=== PATIENT | male | born 1960 | race Caucasian/White ===

== ENCOUNTER 2016-06-23 11:44 | Observation (INO) | payer BC ==
[~2016-06-23] VITALS: Ht 182.9 cm; Wt 102.0 kg
--- NOTE | 2016-06-23 12:31 | EMERGENCY ROOM VISIT NOTE ---
History First contact with patient: 12:07 Chief Complaint: STROKE SYMPTOMS Stated Complaint: LACK OF MEMORY EARLIER THIS MORNING/FORGETFUL Nursing Triage Summary: confusion started this AM, not able to follow his thoughts or tasks as usual; states "about 80%-90% back to normal now". History of Present Illness The patient is a 55 year old male who presents to the Emergency Room via private vehicle with complaints of "lack of memory early this morning/forgetful ". 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 He states that it was almost as if his short-term memory had gone. There were no speech changes or weaknesses. There were no vision changes at the time. He felt that since then short-term memory has gotten better but he still has difficulty recalling that time. He states he's never had this before. He notes that he also just developed some vision changes that when he looks at the paper he cannot see the end of the pen when he is writing and has similar vision changes for 16 years and was evaluated by an b2b appointment setter who believes he might the ocular migraines. He denies any history of heart troubles , history of stroke, chest pain, shortness of breath, weakness. He feels that his symptoms are 80-90% better now. His who accompanies him states he is not experiencing any deficits that she is aware of at this time. Review of Systems A complete 10-point Review of Systems was discussed with the patient, with pertinent positives and negatives listed in the History of Present Illness. All remaining Review of Systems questions can be considered negative unless otherwise specified. Past Medical/Surgical History Medical Problems: (1) TIA (transient ischemic attack) Social History Smoking Status: Never Smoker Current/Historical Medications Scheduled Aspirin (Aspirin EC Low Dose), 81 MG PO QAM Biotin (Biotin), 1,000 MCG PO DAILY Multivitamin (Multivitamin), 1 TAB PO DAILY Scheduled PRN Triamcinolone Acet (Aristocort 0.1%), 1 APPLN TOP BID PRN for Itching Allergies Coded Allergies: No Known Allergies (Unverified , 06/23/16) Physical Exam Vital Signs Date Time Temp Pulse Resp B/P Pulse Ox O2 Delivery O2 Flow Rate FiO2 06/23/16 15:04 63 21 99 06/23/16 14:59 59 20 142/92 99 2/2/17 14:54 62 17 100 06/23/16 14:49 63 20 100 06/23/16 14:44 63 26 100 06/23/16 14:39 63 19 100 06/23/16 14:34 66 16 100 /07/08 14:29 65 19 99 06/23/16 14:24 65 19 99 06/23/16 14:19 62 21 100 06/23/16 14:14 63 16 99 06/23/16 14:09 60 21 100 06/23/16 13:58 119/80 06/23/16 13:54 64 19 99 06/23/16 13:49 66 20 99 06/23/16 13:44 64 16 99 06/23/16 13:39 66 18 97 06/23/16 13:34 58 17 99 06/23/16 13:29 58 16 99 06/23/16 13:24 62 17 99 06/23/16 13:19 63 16 99 06/23/16 13:14 63 13 100 06/23/16 13:09 62 16 99 06/23/16 13:04 61 17 99 06/23/16 12:59 61 19 98 06/23/16 12:58 123/77 06/23/16 12:54 62 18 98 06/23/16 12:50 63 21 123/77 06/23/16 12:49 61 17 100 06/23/16 12:46 125/83 06/23/16 12:34 59 16 97 06/23/16 12:29 63 19 99 06/23/16 12:24 61 22 99 06/23/16 12:19 66 17 99 06/23/16 12:14 63 18 99 06/23/16 12:09 60 17 99 06/23/16 12:04 63 06/23/16 12:04 58 14 99 06/23/16 12:01 116/71 06/23/16 11:45 36.6 66 20 132/85 100 Room Air Physical Exam VITAL SIGNS - Vital signs and nursing notes were reviewed. Afebrile, normotensive, non-tachycardic and saturating well on room air 100%. GENERAL -55-year-old male appearing his stated age who is in no acute distress. Communicates well with provider and answers questions appropriately. SKIN - Without rashes. HEAD - NC/AT. No facial deficits or unilateral drooping. EYES - PERRL with EOMI bilaterally. Sclera anicteric. Palpebral conjunctiva pink and moist with no injection noted. Optic fundi appear to be normal. EARS - No deformities of external structures noted on gross examination bilaterally. No hemotympanum . External auditory canals without discharge or otorrhea. Tympanic membranes pearly harrison without retraction or bulging. No fluid or purulent material visualized behind the TM. Handle of malleus, umbo, cone of light, pars tensa/flaccid all easily visualized. NOSE - Midline and without cyanosis. No epistaxis or purulent drainage noted. MOUTH/OROPHARYNX - Without perioral cyanosis. Buccal mucosa pink and moist and without leukoplakia. Tongue midline with equal elevation of palate bilaterally. No tonsillar hypertrophy, erythema, or exudates noted. Good no dentition noted. NECK - Neck with FROM. Supple to palpation. No lymphadenopathy noted. No nuchal rigidity. LUNGS - Chest wall symmetric without accessory muscle use, intercostals retractions, or central cyanosis. Normal vesicular breath sounds CTA B/L. No wheezes, rales, or rhonchi appreciated. CARDIAC - RRR with S1/S2. No murmur, rubs, or gallops appreciated. EXTREMITIES - No clubbing or peripheral cyanosis. No pretibial edema present. + 5/5 strength noted in UE/LE bilaterally. No neurologic deficits. NEUROLOGIC - Cranial nerves II through XII grossly intact. Sensory intact to light touch throughout. PSYCH - A&Ox3 and cooperates fully with examiner. Pt is very pleasant and interacts well with examiner. Medical Decision & Procedures ER Provider Diagnostic Interpretation: HEAD CT NONCONTRAST CT DOSE: 614.27 mGy.cm HISTORY: Mental status change Stroke TECHNIQUE: Multiaxial CT images of the head were performed without the use of intravenous contrast. Comparison: None. Findings: The paranasal sinuses and mastoid air cells are clear. The calvarium and skull base are intact. The ventricles and sulci are within normal limits. There is no mass, hematoma, midline shift, or acute infarct. Impression: No acute intracranial abnormality. Electronically signed by: Ravinder Awad M.D. 06/23/2016 12:55 PM Dictated Date/Time: 06/23/2016 12:54 PM Laboratory Results Test 06/23/16 12:30 06/23/16 13:15 06/23/16 14:07 Estimated Average Glucose 105 mg/dl Hemoglobin A1c 5.3 % (4.5-5.6) Total Creatine Kinase 81 U/L (39-308) Creatine Kinase MB 1.5 ng/ml (0.5-3.6) Creatine Kinase MB Ratio 1.9 (0-3.0) Troponin I < 0.015 ng/ml (0-0.045) Prothrombin Time 10.9 SECONDS (9.0-12.0) Prothromb Time International Ratio 1.0 (0.9-1.1) Activated Partial Thromboplast Time 24.5 SECONDS (21.0-31.0) Partial Thromboplastin Ratio 0.9 Urine Opiates Screen NEG (NEG) Urine Methadone, Qualitative NEG (NEG) Urine Barbiturates NEG (NEG) Urine Phencyclidine (PCP) Level NEG (NEG) Ur Amphetamine/Methamphetamine NEG (NEG) MDMA (Ecstasy) Screen NEG (NEG) Urine Benzodiazepines Screen NEG (NEG) Urine Cocaine Metabolite NEG (NEG) Urine Marijuana (THC) NEG (NEG) Medications Administered Medications (Trade) Dose Ordered Sig/Velma Route Start Time Stop Time Status Last Admin Dose Admin Sodium Chloride (Nss 1000ml) 1,000 ml @ 50 mls/hr Q20H IV 06/23/16 12:18 06/24/16 17:18 DC 06/24/16 10:05 50 MLS/HR Medical Decision Patient was seen and evaluated as above. After obtaining a thorough history and physical examination IV access was obtained and the above workup was performed. CBC reveals no leukocytosis or anemia. Coagulation studies were normal. CMP reveals no abnormality. Troponin is negative. Patient's EKG reveals sinus bradycardia rate of 5 bpm. There is no ectopy or ischemic change noted on the EKG without previous for comparison. CT of head was negative. Patient clinical experience well. No deficits noted. Case was discussed with my attending. It was decided that due to the patient's presentation of symptoms that the patient would benefit from inpatient management and further investigation into his symptomatology. Case was discussed with the admitting team at 1:57 PM. Please refer to further documentation regarding the patient's stay. In the evaluation treatment this patient the following differential diagnoses were entertained: TIA, CVA, hypoglycemic event, among others. Impression Primary Impression: Memory deficit Departure Information Dispostion Admitted as an inpatient Condition FAIR Prescriptions Aspirin (Aspirin EC Low Dose) 81 Mg Ectab 81 MG PO QAM for 30 Days Prov: Kristina Cade .SHAVONNE 06/24/16 Referrals Maritza Hernández D.O. (PCP) Patient Instructions [facility]
[2016-06-23] MEDS: SODIUM CHLORIDE 0.9% 1000ML 1,000 ML IV SCH (12:44)
[2016-06-23 12:50] LABS: BASO % 0.6 %; BASO ABS # 0.03 K/uL (0-0.2); COMPLETE YES; EOS % 2.4 %; HEMATOCRIT 44.9 % (42-52); IG% 0.2 %; LYMPH % 29.1 %; LYMPH ABS # 1.46 K/uL (1.2-3.4); MEAN CELL VOLUME 88.6 fL (80-100); MEAN CORPUSCULAR HEMOGLOBIN 29.6 pg (25-34); MEAN CORPUSCULAR HGB CONC 33.4 g/dl (32-36); MONO % 6.6 %; NEUT % 61.1 %; PLATELET COUNT 195 K/uL (130-400); RED BLOOD COUNT 5.07 M/uL (4.7-6.1); WHITE BLOOD COUNT 5.01 K/uL (4.8-10.8)
--- NOTE | 2016-06-23 13:01 | DIAGNOSTIC IMAGING REPORT ---
HEAD CT NONCONTRAST CT DOSE: 614.27 mGy.cm HISTORY: Mental status change Stroke TECHNIQUE: Multiaxial CT images of the head were performed without the use of intravenous contrast. Comparison: None. Findings: The paranasal sinuses and mastoid air cells are clear. The calvarium and skull base are intact. The ventricles and sulci are within normal limits. There is no mass, hematoma, midline shift, or acute infarct. Impression: No acute intracranial abnormality. Electronically signed by: Ravinder Awad M.D. 06/23/2016 12:55 PM Dictated Date/Time: 06/23/2016 12:54 PM
[2016-06-23 13:08] LABS: BLOOD UREA NITROGEN 16 mg/dl (7-18); BUN/CREATININE RATIO 11.5 (10-20); CARBON DIOXIDE 27 mmol/L (21-32); CHLORIDE 107 mmol/L (98-107); GLUCOSE 93 mg/dl (70-99); POTASSIUM 4.2 mmol/L (3.5-5.1); SODIUM 141 mmol/L (136-145)
[2016-06-23 13:12] LABS: CKMB/CK RATIO 1.9 (0-3.0)
[2016-06-23 13:44] LABS: PARTIAL THROMBOPLASTIN RATIO 0.9; PROTHROMBIN TIME (PATIENT) 10.9 SECONDS (9.0-12.0)
[2016-06-23 14:50] LABS: BENZODIAZEPINE, URINE NEG (NEG); COCAINE,URINE NEG (NEG); PHENCYCLIDINE, URINE NEG (NEG)
[2016-06-23] MEDS ORDERED: PHARMACIST DISCHARGE MED REC CONSULT PRN (15:15)
[2016-06-23] MEDS ORDERED: IV FLUIDS COMPLETED PRN (15:15)
[2016-06-23] MEDS ORDERED: ONDANSETRON INJ 2 MG/ML 2 ML VIAL IV PRN (15:15)
[2016-06-23] MEDS ORDERED: ACETAMINOPHEN 325 MG TAB PO PRN (15:15)
[2016-06-23] MEDS ORDERED: ASPIRIN 325 MG ECTAB PO STA (15:47)
--- NOTE | 2016-06-23 16:58 | Neurology Consultation ---
Neurology Consultation Date of Consultation: Jun 23, 2016. Attending Physician: Primary Care Physician: Maritza Hernández D.O. Reason for Consultation: loss of memory r/o TIA/CVA History of Present Illness Tulio is a 55 year old male who presents to the ED with memory issues. 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 He was also having trouble remember parts of the presentation. He denies any other symptoms and was not having trouble speaking or doing his usual ADLs. He has a history of ocular migraines which he states he had one in the ED after arrival they happen about 2-3 times per week random times. His brought him and she saw not evidence of any issues. denies CP, SOB, palpations, dizziness, headache, one sided weakness, numbness tingling, falls, head injury, illness, chiropractor manipulation, new medications. He does not smoke or drink excessive EtOH use, caffeine or other drugs. Social History Smoking Status: Never smoker Smokeless Tobacco Use: No Alcohol Use: occasionally Drug Use: none Marital Status: Housing Status: lives with family Occupation Status: employed Allergies Coded Allergies: No Known Allergies (Unverified , 06/23/16) Current Inpatient Medications Current Inpatient Medications Medications (Trade) Dose Ordered Sig/Velma Route Start Time Stop Time Status Last Admin Dose Admin Sodium Chloride (Nss 1000ml) 1,000 ml @ 50 mls/hr Q20H IV 06/23/16 12:18 07/23/16 12:17 06/23/16 12:44 50 MLS/HR Acetaminophen (Tylenol Tab) 650 mg Q4H PRN PO 06/23/16 15:15 07/23/16 15:14 Ondansetron HCl (Zofran Inj) 4 mg Q6H PRN IV 06/23/16 15:15 07/23/16 15:14 Aspirin (Ecotrin Tab) 81 mg QAM PO 06/24/16 09:00 07/24/16 08:59 Miscellaneous Information (Pharmacist Discharge Med Rec Consult) 1 ea UD PRN N/A 06/23/16 15:15 07/23/16 15:14 Miscellaneous (Iv Fluids Completed) 1 ea PRN PRN N/A 06/23/16 15:15 06/23/17 15:14 Physical Exam Vital Signs (Past 24 Hrs): Date Time Temp Pulse Resp B/P Pulse Ox O2 Delivery O2 Flow Rate FiO2 06/23/16 15:44 67 14 100 06/23/16 15:39 67 13 100 /07/08 15:34 57 18 98 2/2/ 15:29 60 18 98 2/2/ 15:24 60 18 99 /07/08 15:19 66 13 98 /2/ 15:14 60 19 98 06/23/16 15:09 59 19 99 /2/ 15:04 63 21 99 /2/ 14:59 59 20 142/92 99 /2/ 14:54 62 17 100 06/23/16 14:49 63 20 100 06/23/16 14:44 63 26 100 06/23/16 14:39 63 19 100 06/23/16 14:34 66 16 100 // 14:29 65 19 99 06/23/16 14:24 65 19 99 06/23/ 14:19 62 21 100 06/23/16 14:14 63 16 99 06/23/ 14:09 60 21 100 2/2/ 13:58 119/80 /07/08 13:54 64 19 99 // 13:49 66 20 99 06/23/ 13:44 64 16 99 // 13:39 66 18 97 /07/08 13:34 58 17 99 /2/ 13:29 58 16 99 // 13:24 62 17 99 /2/ 13:19 63 16 99 // 13:14 63 13 100 /2/ 13:09 62 16 99 /2/ 13:04 61 17 99 2/2/17 12:59 61 19 98 2/2/17 12:58 123/77 /2/17 12:54 62 18 98 /2/17 12:50 63 21 123/77 /2/17 12:49 61 17 100 2/2/17 12:46 125/83 /2/17 12:34 59 16 97 2/2/17 12:29 63 19 99 /2/17 12:24 61 22 99 /2/17 12:19 66 17 99 2/2/17 12:14 63 18 99 06/23/16 12:09 60 17 99 06/23/16 12:04 63 06/23/16 12:04 58 14 99 06/23/16 12:01 116/71 06/23/16 11:45 36.6 66 20 132/85 100 Room Air Physical Exam: Constitutional: appearance nourished, healthy and normal Ears, Nose, Mouth and Throat: mucous membranes moist, no injection and skin normal, eyes normal Cardiovascular: normal S-1 and S-2 and regular rate and rhythm Respiratory: clear to auscultation (CTA) and no rales, rhonchi or wheeze Musculoskeletal: no peripheral edema and good distal pulses Skin: no stigmata of neurocutaneous disease noted and normal and intact Eyes: extraocular muscles intact (EOMI) and pupils equal, round and reactive to light (PERRL), good vascular pulsations disc flat NEUROLOGIC EXAMINATION: Mental status: Alert and interactive Oriented to full date and location Oriented to person Speech fluent with no evidence of aphasia Cranial Nerves smile eye brow raise symmetric, tongue midline Reflexes: Deep tendon reflexes were symmetrical and graded 2/5. Plantar responses were flexor. Sensory: light touch cool touch Coordination: Romberg absent Gait/Stance: Posture normal. Gait normal: with steady with steps, base, turning, heel and toe walking and tandem gait. Motor: Negative for pronator drift of out stretched arms with eyes closed. Strength: biceps triceps deltoids hand parking enforcement technician intrinsics bilaterally 5/5, hip flex ext plantar flex ext bilaterally 5/5 Laboratory Results Past 24 Hours: 06/23/16 12:30 Red Blood Count 5.07, Mean Corpuscular Volume 88.6, Mean Corpuscular Hemoglobin 29.6, Mean Corpuscular Hemoglobin Concent 33.4, Mean Platelet Volume 11.0, Neutrophils (%) (Auto) 61.1, Lymphocytes (%) (Auto) 29.1, Monocytes (%) (Auto) 6.6, Eosinophils (%) (Auto) 2.4, Basophils (%) (Auto) 0.6, Neutrophils # (Auto) 3.06, Lymphocytes # (Auto) 1.46, Monocytes # (Auto) 0.33, Eosinophils # (Auto) 0.12, Basophils # (Auto) 0.03 06/23/16 12:30 Test 2/2/17 12:30 06/23/16 13:15 06/23/16 14:07 White Blood Count 5.01 K/uL (4.8-10.8) Red Blood Count 5.07 M/uL (4.7-6.1) Hemoglobin 15.0 g/dL (14.0-18.0) Hematocrit 44.9 % (42-52) Mean Corpuscular Volume 88.6 fL (80-100) Mean Corpuscular Hemoglobin 29.6 pg (25-34) Mean Corpuscular Hemoglobin Concent 33.4 g/dl (32-36) Platelet Count 195 K/uL (130-400) Mean Platelet Volume 11.0 fL (7.4-10.4) Neutrophils (%) (Auto) 61.1 % Lymphocytes (%) (Auto) 29.1 % Monocytes (%) (Auto) 6.6 % Eosinophils (%) (Auto) 2.4 % Basophils (%) (Auto) 0.6 % Neutrophils # (Auto) 3.06 K/uL (1.4-6.5) Lymphocytes # (Auto) 1.46 K/uL (1.2-3.4) Monocytes # (Auto) 0.33 K/uL (0.11-0.59) Eosinophils # (Auto) 0.12 K/uL (0-0.5) Basophils # (Auto) 0.03 K/uL (0-0.2) RDW Standard Deviation 43.1 fL (36.4-46.3) RDW Coefficient of Variation 13.4 % (11.5-14.5) Immature Granulocyte % (Auto) 0.2 % Immature Granulocyte # (Auto) 0.01 K/uL (0.00-0.02) Anion Gap 7.0 mmol/L (3-11) Est Creatinine Clear Calc Drug Dose 74.5 ml/min Estimated GFR () 65.1 Estimated GFR (Non- 56.2 BUN/Creatinine Ratio 11.5 (10-20) Calcium Level 9.0 mg/dl (8.5-10.1) Total Creatine Kinase 81 U/L (39-308) Creatine Kinase MB 1.5 ng/ml (0.5-3.6) Creatine Kinase MB Ratio 1.9 (0-3.0) Troponin I < 0.015 ng/ml (0-0.045) Prothrombin Time 10.9 SECONDS (9.0-12.0) Prothromb Time International Ratio 1.0 (0.9-1.1) Activated Partial Thromboplast Time 24.5 SECONDS (21.0-31.0) Partial Thromboplastin Ratio 0.9 Urine Opiates Screen NEG (NEG) Urine Methadone, Qualitative NEG (NEG) Urine Barbiturates NEG (NEG) Urine Phencyclidine (PCP) Level NEG (NEG) Ur Amphetamine/Methamphetamine NEG (NEG) MDMA (Ecstasy) Screen NEG (NEG) Urine Benzodiazepines Screen NEG (NEG) Urine Cocaine Metabolite NEG (NEG) Urine Marijuana (THC) NEG (NEG) Imaging CT head with no acute abnormalities Impression 55 year old with memory issues with possible TIA, confusional migraine Plan 1. MRI with and without brain, MRA head and neck - all pending 2. TTE with bubble study pending 3. EEG to r/o seizure 4. will need ophthalmology exam as out patient 5. further recommendation once studies completed I have seen and discussed above patient with Dr Alpa Zelaya, neurology Pt seen and examined. Pt had waxing waning confusion for several hours without other focal complaints. Exam nml. The pt did not have headache at the time although later he had scintillating vis phenomenon without headache (hx of acephalgic joaquin phenomenon weekly, never with migrainous nayak). Diffential includes TIA, partial complex sz, confusional migraine. Work-up as above, PAUL Zelaya MD
[2016-06-23 17:24] VITALS: BP 121/79; PULSE 71; TEMP 36.6; O2SAT 94
[2016-06-23] MEDS ORDERED: IBUP-1050 PO (17:24)
[2016-06-23] MEDS ORDERED: BIOT1TAB5 PO (17:24)
[2016-06-23] MEDS ORDERED: TRMCR130WC TOP (17:24)
[2016-06-23] MEDS ORDERED: MULT-506 PO (17:24)
--- NOTE | 2016-06-23 17:37 | History and Physical ---
History & Physical Date & Time of Service: Jun 23, 2016 at 17:25 Chief Complaint: Confusion Primary Care Physician: Maritza Hernández D.O. History of Present Illness 55 year old male who presents to the ER with episodic confusion. Patient reports he woke up this morning feeling in his usual state of health. He reports that while at work this morning he started to "not feel right". He reports he is unable to describe in detail how he felt. When he got to work he was talking to one of his colleagues and reports he was unable to focus on the conversation. He then went to make some copies and reports he couldn't remember what he was copying. He also doesn't clearly remember making the copies. He reports he felt "foggy" and unable to focus. His symptoms gradually started to get better and have now completely resolved. He reports that over the past 16 years he has episodes where his central vision will become foggy and then that area becomes a ring and will grow in size. He has seen ophthalmology and was diagnosed with ocular migraines. He reports that sometimes these visual episodes occur infrequently or as often as 3 times per day. He did have one episode like that while in the ED. Patient denies any associated headache or double vision. No unilateral weakness, numbness, or tingling. He denies lightheadedness and dizziness. Reports he has been feeling well recently. No chest pain or shortness of breath. He denies abdominal pain, nausea, vomiting, and diarrhea. No fever or chills. He denies any urinary symptoms. In the ER, patient's work up is unrevealing. Past Medical/Surgical History No PMH Family History FH: Alzheimers disease MOTHER negative for premature CAD or CVA Social History Smoking Status: Never Smoker Alcohol Use: occasionally Marital Status: Occupational Status: employed Immunizations History of Tetanus Vaccine?: Yes Tetanus Immunization Date: May 03, 2016 Multi-Drug Resistant Organisms History of MDRO: No Allergies Coded Allergies: No Known Allergies (Unverified , 06/23/16) Home Medications Scheduled Biotin (Biotin), 1,000 MCG PO DAILY Multivitamin (Multivitamin), 1 TAB PO DAILY Scheduled PRN Ibuprofen (Advil), 200 MG PO for Pain Triamcinolone Acet (Aristocort 0.1%), 1 APPLN TOP BID PRN for Itching Review of Systems 10 point review of systems was completed with the pertinent positives and negatives noted per the HPI Physical Exam Vital Signs Date Time Temp Pulse Resp B/P Pulse Ox O2 Delivery O2 Flow Rate FiO2 06/23/16 16:59 59 18 142/86 99 Room Air 06/23/16 16:54 63 18 99 /07/08 16:49 62 19 99 /07/08 16:44 61 12 99 /07/08 16:40 134/88 06/23/16 16:39 66 11 100 06/23/16 16:34 66 16 99 06/23/16 16:29 67 24 99 06/23/16 16:24 61 17 98 /07/08 16:19 59 19 99 /07/08 16:14 60 18 99 06/23/16 16:09 56 12 99 06/23/16 16:04 62 24 98 06/23/16 15:59 68 19 98 /07/08 15:58 138/98 06/23/16 15:54 64 19 98 06/23/16 15:49 63 17 99 06/23/16 15:44 67 14 100 06/23/16 15:39 67 13 100 /07/08 15:34 57 18 98 // 15:29 60 18 98 /07/08 15:24 60 18 99 // 15:19 66 13 98 // 15:14 60 19 98 // 15:09 59 19 99 // 15:04 63 21 99 // 14:59 59 20 142/92 99 06/23/ 14:54 62 17 100 /07/08 14:49 63 20 100 //17 14:44 63 26 100 //17 14:39 63 19 100 /2/17 14:34 66 16 100 /2/17 14:29 65 19 99 /2/17 14:24 65 19 99 /2/17 14:19 62 21 100 /2/17 14:14 63 16 99 /2/17 14:09 60 21 100 /2/17 13:58 119/80 /2/ 13:54 64 19 99 /2/17 13:49 66 20 99 /2/17 13:44 64 16 99 2/2/17 13:39 66 18 97 06/23/16 13:34 58 17 99 06/23/16 13:29 58 16 99 06/23/16 13:24 62 17 99 06/23/16 13:19 63 16 99 06/23/16 13:14 63 13 100 06/23/16 13:09 62 16 99 06/23/16 13:04 61 17 99 06/23/16 12:59 61 19 98 06/23/16 12:58 123/77 06/23/16 12:54 62 18 98 06/23/16 12:50 63 21 123/77 06/23/16 12:49 61 17 100 06/23/16 12:46 125/83 06/23/16 12:34 59 16 97 06/23/16 12:29 63 19 99 06/23/16 12:24 61 22 99 06/23/16 12:19 66 17 99 06/23/16 12:14 63 18 99 06/23/16 12:09 60 17 99 06/23/16 12:04 63 06/23/16 12:04 58 14 99 06/23/16 12:01 116/71 06/23/16 11:45 36.6 66 20 132/85 100 Room Air General Appearance: no apparent distress Head: normocephalic Eyes: normal inspection ENT: hearing grossly normal Neck: supple, no JVD Respiratory/Chest: lungs clear, normal breath sounds, no respiratory distress Cardiovascular: regular rate, rhythm, no edema, normal peripheral pulses Abdomen/GI: normal bowel sounds, non tender, soft Extremities/Musculoskelatal: normal inspection, no calf tenderness Neurologic/Psych: no motor/sensory deficits, alert, normal mood/affect, oriented x 3 Skin: normal color, warm/dry Diagnostics Laboratory Results Results Past 24 Hours Test 06/23/16 12:30 06/23/16 13:15 06/23/16 14:07 Range/Units White Blood Count 5.01 4.8-10.8 K/uL Red Blood Count 5.07 4.7-6.1 M/uL Hemoglobin 15.0 14.0-18.0 g/dL Hematocrit 44.9 42-52 % Mean Corpuscular Volume 88.6 80-100 fL Mean Corpuscular Hemoglobin 29.6 25-34 pg Mean Corpuscular Hemoglobin Concent 33.4 32-36 g/dl Platelet Count 195 130-400 K/uL Mean Platelet Volume 11.0 7.4-10.4 fL Neutrophils (%) (Auto) 61.1 % Lymphocytes (%) (Auto) 29.1 % Monocytes (%) (Auto) 6.6 % Eosinophils (%) (Auto) 2.4 % Basophils (%) (Auto) 0.6 % Neutrophils # (Auto) 3.06 1.4-6.5 K/uL Lymphocytes # (Auto) 1.46 1.2-3.4 K/uL Monocytes # (Auto) 0.33 0.11-0.59 K/uL Eosinophils # (Auto) 0.12 0-0.5 K/uL Basophils # (Auto) 0.03 0-0.2 K/uL RDW Standard Deviation 43.1 36.4-46.3 fL RDW Coefficient of Variation 13.4 11.5-14.5 % Immature Granulocyte % (Auto) 0.2 % Immature Granulocyte # (Auto) 0.01 0.00-0.02 K/uL Sodium Level 141 136-145 mmol/L Potassium Level 4.2 3.5-5.1 mmol/L Chloride Level 107 98-107 mmol/L Carbon Dioxide Level 27 21-32 mmol/L Anion Gap 7.0 3-11 mmol/L Blood Urea Nitrogen 16 7-18 mg/dl Creatinine 1.40 0.60-1.40 mg/dl Est Creatinine Clear Calc Drug Dose 74.5 ml/min Estimated GFR () 65.1 Estimated GFR (Non- 56.2 BUN/Creatinine Ratio 11.5 10-20 Random Glucose 93 70-99 mg/dl Calcium Level 9.0 8.5-10.1 mg/dl Total Creatine Kinase 81 39-308 U/L Creatine Kinase MB 1.5 0.5-3.6 ng/ml Creatine Kinase MB Ratio 1.9 0-3.0 Troponin I < 0.015 0-0.045 ng/ml Prothrombin Time 10.9 9.0-12.0 SECONDS Prothromb Time International Ratio 1.0 0.9-1.1 Activated Partial Thromboplast Time 24.5 21.0-31.0 SECONDS Partial Thromboplastin Ratio 0.9 Urine Opiates Screen NEG NEG Urine Methadone, Qualitative NEG NEG Urine Barbiturates NEG NEG Urine Phencyclidine (PCP) Level NEG NEG Ur Amphetamine/Methamphetamine NEG NEG MDMA (Ecstasy) Screen NEG NEG Urine Benzodiazepines Screen NEG NEG Urine Cocaine Metabolite NEG NEG Urine Marijuana (THC) NEG NEG Diagnostic Radiology CXR Impression: No acute intracranial abnormality. Impression Assessment and Plan MEMORY DIFFICULTY, R/O TIA/CVA - admit to tele - symptoms resolved - MRI/MRA brain, MRA neck - echo with bubble study - check lipids in AM - neuro checks - start ASA - neuro consult, input appreciated ? OCULAR MIGRAINES - outpatient optho follow up DVT PROPHYLAXIS - SCDs DISPO - The patient will be placed as observation status for now until further work up is complete. ATTENDING ADDENDUM care coordinated with SHAVONNE Cade please refer to her notes for full details, I agree with her notes patient seen and examined, records reviewed by myself as well on exam, patient seen sitting up in bed, eating states he feels better overall denies confusion, mental status back to baseline no other symptoms VS noted and reviewed oriented x 3, not in distress, speaks in sentences with no effort nor accessory muscle use normal rate, regular rhythm, no murmurs clear breath sounds bilaterally non distended, soft, nontender no bipedal edema, erythema, warmth no gross focal neuro deficits Brain MRI, MRA: unrevealing WBC: 5k ASSESSMENT/PLAN> EPISODE OF CONFUSION POSSIBLE TIA - started on Aspirin ff up echo, EEG - Neurology consulted other diagnoses and plan of care as per SHAVONNE Cade's notes Chu Monroy MD VTE Prophylaxis VTE Risk Assessment Done? Y/N: Yes Risk Level: Moderate
[2016-06-23] MEDS ORDERED: LORAZEPAM 0.5 MG TAB PO PRN (18:00)
[2016-06-23 18:20] VITALS: O2SAT 98; Ht 182.9 cm; Wt 102.0 kg
[2016-06-23 20:05] VITALS: O2SAT 98
--- NOTE | 2016-06-23 21:50 | DIAGNOSTIC IMAGING REPORT ---
Brain MRA HISTORY: Mental status change. Stroke - Attention to [place] TECHNIQUE: 3-D [id number] MRA of the brain was performed without contrast. COMPARISON STUDY: Head CT 06/23/2016. FINDINGS: Visualized intracranial internal carotid arteries, distal vertebral arteries, and basilar artery are widely patent. There is no significant stenosis, occlusion, or aneurysm seen within the bilateral ACAs, MCAs, or special agent group insurance. There is a hypoplastic distal right vertebral artery. IMPRESSION: No significant stenosis, occlusion, or aneurysm within the [place]. Electronically signed by: Librado Wright M.D. 06/23/2016 9:49 PM Dictated Date/Time: 06/23/2016 9:45 PM
--- NOTE | 2016-06-23 21:54 | DIAGNOSTIC IMAGING REPORT ---
NECK MRA HISTORY: amnesia area TECHNIQUE: [id number] and gadolinium-enhanced MRA of the neck was performed both before and after the intravenous administration of contrast. All measurements were calculated based on NASCET criteria. COMPARISON STUDY: None. FINDINGS: The aortic arch and proximal great vessels are widely patent. There is no significant stenosis, occlusion, or dissection identified within the bilateral common carotid, internal carotid, or left vertebral arteries. The right vertebral artery is hypoplastic. Motion artifact results in nondiagnostic evaluation of the mid right vertebral artery. However, the remaining portions of the right vertebral artery appear patent. IMPRESSION: No significant stenosis, occlusion, or dissection identified within the visualized carotid or vertebral arteries. The right vertebral artery is hypoplastic. Electronically signed by: Librado Wright M.D. 06/23/2016 9:53 PM Dictated Date/Time: 06/23/2016 9:49 PM
[2016-06-23] MEDS ORDERED: MAGNEVIST IV PRN (22:00)
--- NOTE | 2016-06-23 22:04 | DIAGNOSTIC IMAGING REPORT ---
Brain MRI WITH AND WITHOUT CONTRAST HISTORY: memory issues repeated over 3 hours possible TIA CVA TECHNIQUE: Multiplanar multisequence MRI of the brain was performed both before and after the intravenous administration of contrast. COMPARISON STUDY: Head CT 06/23/2016. FINDINGS: There is no mass, hematoma, midline shift, or acute infarct. The paranasal sinuses are clear. The mastoid or cells are clear. The ventricles and sulci demonstrate a within normal limits for age. A few scattered punctate foci of T2 hyperintensity seen within the periventricular and subcortical white matter are nonspecific but suggestive of mild microvascular ischemic changes. The major vascular flow voids at the skull base are well-maintained. No abnormal enhancement. IMPRESSION: No acute intracranial abnormality. Electronically signed by: Librado Wright M.D. 06/23/2016 10:03 PM Dictated Date/Time: 06/23/2016 9:53 PM
[2016-06-24] VITALS (9 sets, daily range): BP systolic 106–122; BP diastolic 65–82; PULSE 50–73; TEMP 36.3–36.7; O2SAT 94–98
[2016-06-24 06:31] LABS: BASO % 0.6 %; BASO ABS # 0.03 K/uL (0-0.2); COMPLETE YES; EOS % 5.5 %; HEMATOCRIT 44.7 % (42-52); IG% 0.2 %; LYMPH ABS # 1.71 K/uL (1.2-3.4); MEAN CELL VOLUME 89.4 fL (80-100); MEAN CORPUSCULAR HEMOGLOBIN 29.6 pg (25-34); MEAN CORPUSCULAR HGB CONC 33.1 g/dl (32-36); MEAN PLATELET VOLUME 10.9 fL (7.4-10.4); NEUT % 49.7 %; PLATELET COUNT 177 K/uL (130-400); WHITE BLOOD COUNT 4.89 K/uL (4.8-10.8)
[2016-06-24 06:41] LABS: ESTIMATED AVERAGE GLUCOSE 105 mg/dl; HA1C FLAG Normal (Normal)
[2016-06-24 07:02] LABS: BUN/CREATININE RATIO 11.2 (10-20); CALCIUM 9.2 mg/dl (8.5-10.1); CREATININE 1.5 mg/dl (0.60-1.40); POTASSIUM 4.3 mmol/L (3.5-5.1)
[2016-06-24 07:06] LABS: CHOLESTEROL/HDL RATIO 2.4
[2016-06-24] MEDS: SODIUM CHLORIDE 0.9% 1000ML 1,000 ML IV SCH ×2 (08:55→10:05)
[2016-06-24] MEDS ORDERED: ASPIRIN 81 MG ECTAB PO SCH (09:00)
[2016-06-24] MEDS ORDERED: MULTIVITAMIN TAB PO SCH (09:00)
[2016-06-24] MEDS ORDERED: INFLUENZA VIRUS QUAD VACCINE 0.5 ML SYR IM. ONE (09:45)
[2016-06-24] MEDS ORDERED: PNEUMOCOCCAL POLYSACCHARIDES 25 MCG/0.5 ML VIAL/SYR IM. ONE (09:45)
[2016-06-24] MEDS ORDERED: PNEUMOCOCCAL ADMINISTRATION CHARGE ONE (09:45)
[2016-06-24] MEDS ORDERED: INFLUENZA ADMINISTRATION CHARGE ONE (09:45)
[2016-06-24] MEDS ORDERED: ASPEC81 PO (13:03)
--- NOTE | 2016-06-24 13:06 | Neurology Progress Notes ---
Neurology Progress Note Date of Service Jun 24, 2016. Lizzette Antunez is a 55 year old male who presents to the ED with memory issues. 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 He was also having trouble remember parts of the presentation. He denies any other symptoms and was not having trouble speaking or doing his usual ADLs. He has a history of ocular migraines which he states he had one in the ED after arrival they happen about 2-3 times per week random times. His brought him and she saw not evidence of any issues. denies CP, SOB, palpations, dizziness, headache, one sided weakness, numbness tingling, falls, head injury, illness, chiropractor manipulation, new medications. He does not smoke or drink excessive EtOH use, caffeine or other drugs. Today he states he is doing well and has not had any further events. Objective Date Time Temp Pulse Resp B/P Pulse Ox O2 Delivery O2 Flow Rate FiO2 06/24/16 12:00 98 Room Air 06/24/16 08:00 98 Room Air 06/24/16 07:49 36.5 57 18 106/68 98 Room Air 06/24/16 05:05 36.3 50 18 114/71 98 Room Air 06/24/16 04:00 98 Room Air 06/24/16 00:05 98 Room Air 06/24/16 00:00 36.6 73 20 122/82 94 Room Air 06/23/16 20:05 98 Room Air 06/23/16 18:20 98 Room Air 06/23/16 17:45 71 20 121/79 94 06/23/16 17:24 36.6 71 20 121/79 94 Room Air 06/23/16 16:59 59 18 142/86 99 Room Air 06/23/16 16:54 63 18 99 06/23/16 16:49 62 19 99 06/23/16 16:44 61 12 99 06/23/16 16:40 134/88 06/23/16 16:39 66 11 100 06/23/16 16:34 66 16 99 06/23/16 16:29 67 24 99 06/23/16 16:24 61 17 98 06/23/16 16:19 59 19 99 06/23/16 16:14 60 18 99 06/23/16 16:09 56 12 99 06/23/16 16:04 62 24 98 06/23/16 15:59 68 19 98 06/23/16 15:58 138/98 06/23/16 15:54 64 19 98 06/23/16 15:49 63 17 99 06/23/16 15:44 67 14 100 06/23/16 15:39 67 13 100 06/23/16 15:34 57 18 98 06/23/16 15:29 60 18 98 06/23/16 15:24 60 18 99 06/23/16 15:19 66 13 98 06/23/16 15:14 60 19 98 06/23/16 15:09 59 19 99 06/23/16 15:04 63 21 99 06/23/16 14:59 59 20 142/92 99 06/23/16 14:54 62 17 100 06/23/16 14:49 63 20 100 06/23/16 14:44 63 26 100 06/23/16 14:39 63 19 100 06/23/16 14:34 66 16 100 06/23/16 14:29 65 19 99 06/23/16 14:24 65 19 99 06/23/16 14:19 62 21 100 06/23/16 14:14 63 16 99 06/23/16 14:09 60 21 100 06/23/16 13:58 119/80 06/23/16 13:54 64 19 99 06/23/16 13:49 66 20 99 06/23/16 13:44 64 16 99 06/23/16 13:39 66 18 97 06/23/16 13:34 58 17 99 06/23/16 13:29 58 16 99 06/23/16 13:24 62 17 99 06/23/16 13:19 63 16 99 06/23/16 13:14 63 13 100 06/23/16 13:09 62 16 99 06/23/16 13:04 61 17 99 Last 24 Hours Test 06/23/16 13:15 06/23/16 14:07 06/24/16 06:15 Prothrombin Time 10.9 SECONDS Prothromb Time International Ratio 1.0 Activated Partial Thromboplast Time 24.5 SECONDS Partial Thromboplastin Ratio 0.9 Urine Opiates Screen NEG Urine Methadone, Qualitative NEG Urine Barbiturates NEG Urine Phencyclidine (PCP) Level NEG Ur Amphetamine/Methamphetamine NEG MDMA (Ecstasy) Screen NEG Urine Benzodiazepines Screen NEG Urine Cocaine Metabolite NEG Urine Marijuana (THC) NEG White Blood Count 4.89 K/uL Red Blood Count 5.00 M/uL Hemoglobin 14.8 g/dL Hematocrit 44.7 % Mean Corpuscular Volume 89.4 fL Mean Corpuscular Hemoglobin 29.6 pg Mean Corpuscular Hemoglobin Concent 33.1 g/dl Platelet Count 177 K/uL Mean Platelet Volume 10.9 fL Neutrophils (%) (Auto) 49.7 % Lymphocytes (%) (Auto) 35.0 % Monocytes (%) (Auto) 9.0 % Eosinophils (%) (Auto) 5.5 % Basophils (%) (Auto) 0.6 % Neutrophils # (Auto) 2.43 K/uL Lymphocytes # (Auto) 1.71 K/uL Monocytes # (Auto) 0.44 K/uL Eosinophils # (Auto) 0.27 K/uL Basophils # (Auto) 0.03 K/uL RDW Standard Deviation 43.6 fL RDW Coefficient of Variation 13.3 % Immature Granulocyte % (Auto) 0.2 % Immature Granulocyte # (Auto) 0.01 K/uL Sodium Level 145 mmol/L Potassium Level 4.3 mmol/L Chloride Level 108 mmol/L Carbon Dioxide Level 29 mmol/L Anion Gap 8.0 mmol/L Blood Urea Nitrogen 17 mg/dl Creatinine 1.50 mg/dl Est Creatinine Clear Calc Drug Dose 68.8 ml/min Estimated GFR () 59.9 Estimated GFR (Non- 51.7 BUN/Creatinine Ratio 11.2 Random Glucose 87 mg/dl Calcium Level 9.2 mg/dl Triglycerides Level 93 mg/dl Cholesterol Level 138 mg/dl HDL Cholesterol 57 mg/dl LDL Cholesterol, Calculated 62 mg/dl VLDL Cholesterol, Calculated 19 mg/dl Cholesterol/HDL Ratio 2.4 Imaging: EEG - no epileptic spikes-normal EEG Exam: Gen: alert NAD lungs normal CV RRR walking in room Current Inpatient Medications Medications (Trade) Dose Ordered Sig/Velma Route Start Time Stop Time Status Last Admin Dose Admin Sodium Chloride (Nss 1000ml) 1,000 ml @ 50 mls/hr Q20H IV 06/23/16 12:18 07/23/16 12:17 06/24/16 10:05 50 MLS/HR Acetaminophen (Tylenol Tab) 650 mg Q4H PRN PO 06/23/16 15:15 07/23/16 15:14 Ondansetron HCl (Zofran Inj) 4 mg Q6H PRN IV 06/23/16 15:15 07/23/16 15:14 Aspirin (Ecotrin Tab) 81 mg QAM PO 06/24/16 09:00 07/24/16 08:59 06/24/16 09:23 81 MG Miscellaneous Information (Pharmacist Discharge Med Rec Consult) 1 ea UD PRN N/A 06/23/16 15:15 07/23/16 15:14 Miscellaneous (Iv Fluids Completed) 1 ea PRN PRN N/A 06/23/16 15:15 06/23/17 15:14 Multivitamins (Multivitamin Tab) 1 tab DAILY PO 06/24/16 09:00 07/24/16 08:59 06/24/16 08:41 1 TAB Lorazepam (Ativan Tab) 0.5 mg DAILY PRN PO 06/23/16 18:00 07/23/16 17:59 06/23/16 20:33 0.5 MG Gadopentetate Dimeglumine (Magnevist) 20 ml UD PRN IV 06/23/16 22:00 06/27/16 21:59 Impression 55 year old with memory issues with possible TIA, confusional migraine Plan 1. MRI with and without brain, MRA head and neck - no acute abnormalities seen 2. TTE with bubble study pending 3. EEG to r/o seizure- no seizure activity noted 4. will need ophthalmology exam as out patient 5. recommend aspirin 81 mg as outpatient 6. can follow up as needed with [facility] Amezc[facility] neurology 7. ok to discharge from neurology perspective I have discussed above patient with Dr Alex Salmon, neurology Patient not seen as I was led to believe he was being discharged with diagnosis of confusional migraine and imaging and eeg show nothing save for some old presumptive small vessel or migrainous changes He certainly has frequent migraines and has not seen neurology for them nor does he seem apparently to be that impaired by them save for the current event. The ryley shows a small pfo howver which can be seen in a significant percentage of the population, may in fact be more prevalent in migraine patients and is very small and not likely to be an embilid pathway Furthermore we have no evidence for a completed event here. Discussed with Nithya MARVIN and discharge with follow up by pcp and cardiology seems appropriate, need to take asa 81 mg daily and neurology could se him outpatient basis if he would want to do so If so follow up with Alpa Unger and Alpa Zelaya MD who know him would be the best Alex Salmon MD
--- NOTE | 2016-06-24 13:09 | Discharge Instructions ---
Discharge Instructions Admission Reason for Admission: Confusion Discharge Discharge Diagnosis / Problem: Episodic Confusion Discharge Goals Goal(s): Decrease discomfort, Improve function Activity Recommendations Activity Limitations: resume your previous activity . Instructions / Follow-Up Instructions / Follow-Up Follow Up with Dr. 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 You were admitted to the hospital for evaluation of an episode of confusion/ altered mental status. Your work up was negative for stroke and seizure. You had an echocardiogram (ultrasound of the heart) that showed a small hole between the top two chambers for your heart. Your PCP can make a referral for you to see cardiology as an outpatient for further follow up. Your kidney function was found to be mildly abnormal - try to increase your water intake and do not take any NSAIDs (ibuprofen) until you are seen for your follow up appointment and your kidney function has been checked. Start taking aspirin 81mg daily Risk Factors for Stroke: You can reduce your chances of stroke by working with your medical provider to adopt a healthy lifestyle. Some specific ways to lower your chance of stroke are: * If you are a smoker, now is the time to stop smoking cigarettes * If you are diabetic, improve the control of your blood sugars * Avoid excessive amounts of alcohol * Control high blood pressure * Lose weight if you are overweight * Be sure to lead an active lifestyle * Eat a healthy diet low in salt, cholesterol and fat You should know about other risk factors for stroke that you are unable to control. These include: * Age 55 years or older * Male gender * Certain racial groups: , or / * Family History of Stroke, Mini stroke or Heart Attack * Sickle Cell Disease Follow Up: It is important for you to keep your follow up appointments with your medical provider. Current Hospital Diet Patient's current hospital diet: AHA Diet (Heart Healthy) Discharge Diet Recommended Diet: AHA Diet (Heart Healthy) Pending Studies Studies pending at discharge: no Laboratory Results Hemoglobin A1c Test 06/23/16 12:30 Range/Units Estimated Average Glucose 105 mg/dl Hemoglobin A1c 5.3 4.5-5.6 % Lipid Panel Test 06/24/16 06:15 Range/Units Triglycerides Level 93 0-150 mg/dl Cholesterol Level 138 0-200 mg/dl HDL Cholesterol 57 mg/dl Cholesterol/HDL Ratio 2.4 LDL Cholesterol, Calculated 62 mg/dl Medical Emergencies . Who to Call and When: Medical Emergencies: Call 911 immediately if you experience any of the following warning signs and symptoms of Stroke: * Sudden numbness or weakness of the face, arm or leg, especially on one side of the body * Sudden confusion, trouble speaking or understanding * Sudden trouble seeing in one or both eyes * Sudden trouble walking, dizziness, loss of balance or coordination * Sudden severe headache with no cause Do not delay calling 911 if you experience any warning signs or symptoms of a stroke. Delay in seeking medical attention may affect what treatments can be given to you. . Non-Emergent Contact Non-Emergency issues call your: Primary Care Provider . . "Provider Documentation" section prepared by Kristina Cade. Stroke Core Measures Reason no t-PA for Stroke: Treatment not indicated Reason no antithrom by day 2: Treatment provided - N/A Reason no antithrom at D/C: Treatment provided - N/A Reason no statin at D/C: Treatment not indicated Reason no anticoag w/a fib: Treatment not indicated VTE Core Measure Inpt VTE Proph given/why not?: SCD's
--- NOTE | 2016-06-24 13:17 | Hospitalist Progress Note ---
Hospitalist Progress Note Date of Service Jun 24, 2016. (Kristina Cade ., SHAVONNE) Subjective Patient seen and examined. Reports feeling well today. No further confusional episodes. Denies unilateral weakness, numbness, and tingling. Denies chest pain and shortness of breath. No abdominal pain or nausea. (Kristina Cade ., SHAVONNE) Objective Vital Signs Date Time Temp Pulse Resp B/P Pulse Ox O2 Delivery O2 Flow Rate FiO2 06/24/16 12:00 98 Room Air 06/24/16 08:00 98 Room Air 06/24/16 07:49 36.5 57 18 106/68 98 Room Air 06/24/16 05:05 36.3 50 18 114/71 98 Room Air 06/24/16 04:00 98 Room Air 06/24/16 00:05 98 Room Air 06/24/16 00:00 36.6 73 20 122/82 94 Room Air 06/23/16 20:05 98 Room Air 06/23/16 18:20 98 Room Air 06/23/16 17:45 71 20 121/79 94 06/23/16 17:24 36.6 71 20 121/79 94 Room Air 06/23/16 16:59 59 18 142/86 99 Room Air 06/23/16 16:54 63 18 99 06/23/16 16:49 62 19 99 06/23/16 16:44 61 12 99 06/23/16 16:40 134/88 06/23/16 16:39 66 11 100 06/23/16 16:34 66 16 99 06/23/16 16:29 67 24 99 06/23/16 16:24 61 17 98 06/23/16 16:19 59 19 99 06/23/16 16:14 60 18 99 06/23/16 16:09 56 12 99 06/23/16 16:04 62 24 98 06/23/16 15:59 68 19 98 06/23/16 15:58 138/98 06/23/16 15:54 64 19 98 06/23/16 15:49 63 17 99 06/23/16 15:44 67 14 100 06/23/16 15:39 67 13 100 06/23/16 15:34 57 18 98 06/23/16 15:29 60 18 98 06/23/16 15:24 60 18 99 06/23/16 15:19 66 13 98 06/23/16 15:14 60 19 98 06/23/16 15:09 59 19 99 06/23/16 15:04 63 21 99 06/23/16 14:59 59 20 142/92 99 06/23/16 14:54 62 17 100 06/23/16 14:49 63 20 100 06/23/16 14:44 63 26 100 06/23/16 14:39 63 19 100 06/23/16 14:34 66 16 100 06/23/16 14:29 65 19 99 06/23/16 14:24 65 19 99 06/23/16 14:19 62 21 100 06/23/16 14:14 63 16 99 06/23/16 14:09 60 21 100 06/23/16 13:58 119/80 06/23/16 13:54 64 19 99 06/23/16 13:49 66 20 99 06/23/16 13:44 64 16 99 06/23/16 13:39 66 18 97 06/23/16 13:34 58 17 99 06/23/16 13:29 58 16 99 06/23/16 13:24 62 17 99 06/23/16 13:19 63 16 99 06/23/16 13:14 63 13 100 (Kristina Cade CRNP) Physical Exam General Appearance: no apparent distress Eyes: normal inspection ENT: hearing grossly normal Neck: supple, no JVD Respiratory/Chest: lungs clear, normal breath sounds, no respiratory distress Cardiovascular: regular rate, rhythm, no edema Abdomen: normal bowel sounds, non tender, soft Neurologic/Psychiatric: no motor/sensory deficits, alert, normal mood/affect, oriented x 3 Skin: normal color, warm/dry (Kristina Cade CRNP) Laboratory Results Last 24 Hours Test 06/23/16 13:15 06/23/16 14:07 06/24/16 06:15 Prothrombin Time 10.9 SECONDS Prothromb Time International Ratio 1.0 Activated Partial Thromboplast Time 24.5 SECONDS Partial Thromboplastin Ratio 0.9 Urine Opiates Screen NEG Urine Methadone, Qualitative NEG Urine Barbiturates NEG Urine Phencyclidine (PCP) Level NEG Ur Amphetamine/Methamphetamine NEG MDMA (Ecstasy) Screen NEG Urine Benzodiazepines Screen NEG Urine Cocaine Metabolite NEG Urine Marijuana (THC) NEG White Blood Count 4.89 K/uL Red Blood Count 5.00 M/uL Hemoglobin 14.8 g/dL Hematocrit 44.7 % Mean Corpuscular Volume 89.4 fL Mean Corpuscular Hemoglobin 29.6 pg Mean Corpuscular Hemoglobin Concent 33.1 g/dl Platelet Count 177 K/uL Mean Platelet Volume 10.9 fL Neutrophils (%) (Auto) 49.7 % Lymphocytes (%) (Auto) 35.0 % Monocytes (%) (Auto) 9.0 % Eosinophils (%) (Auto) 5.5 % Basophils (%) (Auto) 0.6 % Neutrophils # (Auto) 2.43 K/uL Lymphocytes # (Auto) 1.71 K/uL Monocytes # (Auto) 0.44 K/uL Eosinophils # (Auto) 0.27 K/uL Basophils # (Auto) 0.03 K/uL RDW Standard Deviation 43.6 fL RDW Coefficient of Variation 13.3 % Immature Granulocyte % (Auto) 0.2 % Immature Granulocyte # (Auto) 0.01 K/uL Sodium Level 145 mmol/L Potassium Level 4.3 mmol/L Chloride Level 108 mmol/L Carbon Dioxide Level 29 mmol/L Anion Gap 8.0 mmol/L Blood Urea Nitrogen 17 mg/dl Creatinine 1.50 mg/dl Est Creatinine Clear Calc Drug Dose 68.8 ml/min Estimated GFR () 59.9 Estimated GFR (Non- 51.7 BUN/Creatinine Ratio 11.2 Random Glucose 87 mg/dl Calcium Level 9.2 mg/dl Triglycerides Level 93 mg/dl Cholesterol Level 138 mg/dl HDL Cholesterol 57 mg/dl LDL Cholesterol, Calculated 62 mg/dl VLDL Cholesterol, Calculated 19 mg/dl Cholesterol/HDL Ratio 2.4 (Kristina Cade ., CREEL CLEANER) Assessment and Plan EPISODIC CONFUSION, R/O TIA/CVA - admit to tele - ? due to complex migraine - symptoms resolved - MRI/MRA brain, MRA neck negative for acute findings - echo with bubble study pending - EEG negative per verbal report from Alpa Amezcua PA-C - lipids panel WNL - neuro checks - start ASA - neuro recommending to continue as discharge - neuro consult, input appreciated ? OCULAR MIGRAINES - outpatient optho follow up ABNORMAL RENAL FUNCTION - creat found to be 1.5 today, ? due to contrast - gentle IVF - recheck PRP before discharge DVT PROPHYLAXIS - SCDs DISPO - likely d/c once echo resulted (Kristina Cade ., SHAVONNE) Attending addendum Pt was seen and examined . Agree with Kristina MARVIN's exam, assessment and plan. Pt said that she feels fine. she denies any confusion or altered mental status. CT/MRI/MRA head and MRA of the neck are negative. EEG showed no seizure activity. Echo showed no wall motion abnormality with normal EF. Continue asa 81 mg. neuro on board. asymptomatic. clinically stable, will discharge home today. (Shyla Apple M.D.)
--- NOTE | 2016-06-24 13:20 | ELECTROENCEPHALOGRAPH REPORT ---
REQUESTING: Alpa Amezcua and Alpa Zelaya. CLINICAL DIAGNOSIS: Transient confusion and headaches, question seizures. ELECTROENCEPHALOGRAM DIAGNOSIS: Essentially normal during wakefulness. DESCRIPTION OF TRACING: This EEG was done as a bedside recording with simultaneous video analysis of patient movement and behavior. Photic stimulation was performed. Hyperventilation was not. Drowsiness and light sleep are not recorded. Under these conditions, there is evidence for normal appearing background rhythm in the alpha range of up to 10-11 Hz of maximum frequency and 20-30 microvolts of maximum amplitude. This is maximum posterior head regions bilaterally symmetrical. Polymorphic mid to lower frequency at upper frequency theta activity of modest voltage is seen over all head regions without clear focal or regional predominance. Anterior head region maximum bilaterally symmetrical low voltage fast activity in the beta range is present. Photic stimulation provoked some minimal driving response to the posterior head regions without a photomyogenic or photoparoxysmal component. At no time during the waking tracing is there evidence for potentially epileptogenic activity in the form of polyspike or spike wave bursts for level, focal sharp waves or focal spikes. INTERPRETATION: This EEG is essentially normal during wakefulness without evidence for focal or generalized encephalopathy and without evidence for potentially epileptogenic activity. MTDD
[2016-06-24 14:55] LABS: BUN/CREATININE RATIO 11.6 (10-20); CALCIUM 8.9 mg/dl (8.5-10.1); CREATININE 1.5 mg/dl (0.60-1.40); POTASSIUM 3.9 mmol/L (3.5-5.1)
--- NOTE | 2016-06-24 15:26 | Pharmacy Progress Note ---
Pharmacist Stroke Counseling Date of Service Jun 24, 2016. Scope Pharmacy has been consulted to provide medication discharge counseling for this patient admitted with ischemic stroke/hemorrhagic stroke/ transient ischemic attack as per the Pharmacist Discharge Counseling for Stroke Patients Protocol. Medications on Discharge New Medications: Aspirin (Aspirin EC Low Dose) 81 Mg Ectab 81 MG PO QAM for 30 Days Continued Medications: Biotin (Biotin) 1,000 Mcg Tab 1000 MCG PO DAILY Multivitamin (Multivitamin) Tab 1 TAB PO DAILY, TAB Triamcinolone Acet (Aristocort 0.1%) 90 Appln/30 Gm Cr 1 APPLN TOP BID PRN for Itching Discontinued Medications: Ibuprofen (Advil) 200 Mg Tab 200 MG PO PRN for Pain, TAB Action The above medications, specifically ones for stroke treatment/prophylaxis, have been reviewed in detail with the patient and/or patient electronics parts sales representative(s) prior to discharge. This includes indication, common adverse reactions, drug interactions, and medication administration. Medication counseling has been employed using the teach-back method to ensure understanding. Outcome The patient and/or patient electronics parts sales representative(s) have demonstrated understanding of the medications. Please note, they are aware that the pharmacist will call them within 72 hours post-discharge to confirm that the appropriate medications are being taken and answer any further medication related questions the patient might have at that time --> No phone f/u warranted as patient did not have a stroke. Additional comments: - Patient did not have a stroke. All work-up was negative. Unclear diagnosis. Discharge counseling for "stroke" provided by Pharmacy because Discharge Instructions still has stroke education to prevent stroke and aspirin empirically being started. - Patient is a young 55 y/o with no significant PMH. He is not on any chronic Rx. Mainly just takes supplements for "health maintenance" and uses steroid creams prn itching/rash. He seems very knowledgeable. - Denies smoking. No major risk factors for stroke. Thank you for allowing pharmacy to be involved in the care of this patient. Please call [phone] or [phone] with any additional questions
--- NOTE | 2016-06-24 16:05 | ECHOCARDIOGRAM REPORT ---
*NOTICE TO RECEIVING [employer] This information is strictly Confidential and protected under [place] law. [place] law prohibits you from making any further disclosure of this information unless further disclosure is expressly permitted by the written consent of the person to whom it pertains or is authorized by law. A general authorization for the release of medical or other information is not sufficient for this purpose. Hospital accepts no responsibility if the information is made available to any other person, INCLUDING THE PATIENT. Interpretation Summary * Name: MELISSA WARE Study Date: 06/24/2016 10:32 AM BP: 106/68 mmHg * Patient Location: [facility] HR: 57 * : 1960 (M/d/yyyy) Gender: Male Height: 72 in * Age: 55 yrs Ethnicity: CA Weight: 230 lb * Ordering Physician: Kristina Cade * Referring Physician: Self, Referred * Performed By: Effie Garcia RCS * * Reason For Study: TIA/CVA * BSA: 2.3 m2 * -- Conclusions -- * Normal LV chamber size and wall thickness. * Normal LV systolic function, EF 65-70%. * No segmental left ventricular wall motion abnormalities are noted. * Grade II diastolic dysfunction. * Aortic valve sclerosis mild, without significant aortic valvular stenosis. * Mild aortic root dilatation. * A patent foramen ovale is present and there is low risk for embolism. Procedure Details * A complete two-dimensional transthoracic echocardiogram was performed (2D, M-mode, Doppler and color flow Doppler). * A saline contrast injection was performed to assess for cardiac shunting. * The injection was performed through an intravenous line in the right arm. * The attending nurse who injected the saline contrast was Rona Sutherland RN. * A total of 30 cc of agitated saline was given. Left Ventricle * The left ventricle is normal in size. * There is normal left ventricular wall thickness. * Ejection Fraction = 65-70%. * Left ventricular systolic function is normal. * No segmental left ventricular wall motion abnormalities are noted. * The left ventricular wall motion is normal. Right Ventricle * The right ventricular cavity size is normal (basal dimension <4.2 cm in right ventricular apical 4-chamber view). * The right ventricular systolic function is normal as assessed by tricuspid annular plane systolic excursion (TAPSE) (normal >1.5 cm). Atria * The left atrium is mildly dilated. * Right atrial size is normal. * A patent foramen ovale is present and there is low risk for embolism. Mitral Valve * The mitral valve is normal in structure and function. Tricuspid Valve * The tricuspid valve is normal in structure and function. Aortic Valve * The aortic valve is trileaflet. * Aortic valve sclerosis mild, without significant aortic valvular stenosis. * There is no significant aortic regurgitation. Pulmonic Valve * The pulmonary valve is not well seen, but the Doppler examination is normal without significant regurgitation or stenosis. Great Vessels * Mild aortic root dilatation. Pericardium/Pleural * There is no pericardial effusion. Left Ventricular Diastolic Function * Diastolic dysfunction, Grade II (pseudonormalization pattern). MMode 2D Measurements and Calculations IVSd 1.0 cm IVSs 1.2 cm LVIDd 4.6 cm LVIDs 3.1 cm LVPWd 10 cm LVPWs 1.2 cm IVS/LVPW 1.0 FS 33.2 % EDV(Teich) 99.6 ml ESV(Teich) 38.0 ml EF(Teich) 61.9 % EDV(cubed) 100.3 ml ESV(cubed) 29.9 ml EF(cubed) 70.2 % % IVS thick 17.1 % % LVPW thick 24.2 % LV mass(C)d 162.2 grams LV mass(C)dI 71.7 grams/m\S\2 LV mass(C)s 115.9 grams LV mass(C)sI 51.3 grams/m\S\2 CO(Teich) 3.4 l/min CI(Teich) 1.5 l/min/m\S\2 SV(Teich) 61.6 ml SI(Teich) 27.3 ml/m\S\2 CO(cubed) 3.9 l/min CI(cubed) 1.7 l/min/m\S\2 SV(cubed) 70.4 ml SI(cubed) 31.1 ml/m\S\2 Ao root diam 4.3 cm Ao root area 14.6 cm\S\2 ACS 2.4 cm LA dimension 4.0 cm LA/Ao 0.93 LVAd ap4 42.6 cm\S\2 LVLd ap4 10.2 cm EDV(MOD-sp4) 145.0 ml LVAs ap4 21.4 cm\S\2 LVLs ap4 8.1 cm ESV(MOD-sp4) 47.0 ml EF(MOD-sp4) 67.6 % LVAd ap2 46.2 cm\S\2 LVLd ap2 10.6 cm EDV(MOD-sp2) 165.0 ml LVAs ap2 20.6 cm\S\2 LVLs ap2 8.2 cm ESV(MOD-sp2) 42.0 ml EF(MOD-sp2) 74.5 % CO(MOD-sp4) 5.4 l/min CI(MOD-sp4) 2.4 l/min/m\S\2 SV(MOD-sp4) 98.0 ml SI(MOD-sp4) 43.3 ml/m\S\2 CO(MOD-sp2) 6.8 l/min CI(MOD-sp2) 3.0 l/min/m\S\2 SV(MOD-sp2) 123.0 ml SI(MOD-sp2) 54.4 ml/m\S\2 Doppler Measurements and Calculations MV E max flori 71.6 cm/sec MV A max flori 44.4 cm/sec MV E/A 1.6 MV P1/2t max flori 74.7 cm/sec MV P1/2t 67.8 msec MVA(P1/2t) 3.2 cm\S\2 MV dec slope 322.7 cm/sec\S\2 MV dec time 0.21 sec Ao V2 max 121.6 cm/sec Ao max PG 5.9 mmHg Ao max PG (full) 0.58 mmHg LV V1 max PG 5.3 mmHg LV V1 max 115.5 cm/sec PA V2 max 84.8 cm/sec PA max PG 2.9 mmHg PI max flori 171.3 cm/sec PI max PG 11.8 mmHg PI dec slope 197.7 cm/sec\S\2 PI P1/2t 253.8 msec
--- NOTE | 2016-06-24 17:07 | Discharge Summary ---
Discharge Summary Admission Date: Jun 23, 2016 at 15:06 Discharge Date: Jun 24, 2016 Discharge Disposition: Home Principal Diagnosis: EPISODIC CONFUSION Secondary Diagnoses/Problems: ? OCULAR MIGRAINES ABNORMAL RENAL FUNCTION Procedures: CT Head Impression: No acute intracranial abnormality. NECK MRA IMPRESSION: No significant stenosis, occlusion, or dissection identified within the visualized carotid or vertebral arteries. The right vertebral artery is hypoplastic. HEAD MRA IMPRESSION: No significant stenosis, occlusion, or aneurysm within the eyak of [place]. BRAIN MRI IMPRESSION: No acute intracranial abnormality. EEG INTERPRETATION: This EEG is essentially normal during wakefulness without evidence for focal or generalized encephalopathy and without evidence for potentially epileptogenic activity. ECHO: Normal LV chamber size and wall thickness. Normal LV systolic function, EF 65-70%. No segmental left ventricular wall motion abnormalities are noted. Grade II diastolic dysfunction. Aortic valve sclerosis mild, without significant aortic valvular stenosis. Mild aortic root dilatation. A patent foramen ovale is present and there is low risk for embolism. Consultations: Alpa Amezcua PA-C, neurology Pending Studies/Follow-Up: - Repeat BMP in one week to check renal function - Consider cardiology follow up for PFO found on echo Medication Reconciliation New Medications: Aspirin (Aspirin EC Low Dose) 81 Mg Ectab 81 MG PO QAM for 30 Days Continued Medications: Biotin (Biotin) 1,000 Mcg Tab 1000 MCG PO DAILY Multivitamin (Multivitamin) Tab 1 TAB PO DAILY, TAB Triamcinolone Acet (Aristocort 0.1%) 90 Appln/30 Gm Cr 1 APPLN TOP BID PRN for Itching Discontinued Medications: Ibuprofen (Advil) 200 Mg Tab 200 MG PO PRN for Pain, TAB Admission Information HPI (per Admitting provider): 55 year old male who presents to the ER with episodic confusion. Patient reports he woke up this morning feeling in his usual state of health. He reports that while at work this morning he started to "not feel right". He reports he is unable to describe in detail how he felt. When he got to work he was talking to one of his colleagues and reports he was unable to focus on the conversation. He then went to make some copies and reports he couldn't remember what he was copying. He also doesn't clearly remember making the copies. He reports he felt "foggy" and unable to focus. His symptoms gradually started to get better and have now completely resolved. He reports that over the past 16 years he has episodes where his central vision will become foggy and then that area becomes a ring and will grow in size. He has seen ophthalmology and was diagnosed with ocular migraines. He reports that sometimes these visual episodes occur infrequently or as often as 3 times per day. He did have one episode like that while in the ED. Patient denies any associated headache or double vision. No unilateral weakness, numbness, or tingling. He denies lightheadedness and dizziness. Reports he has been feeling well recently. No chest pain or shortness of breath. He denies abdominal pain, nausea, vomiting, and diarrhea. No fever or chills. He denies any urinary symptoms. In the ER, patient's work up is unrevealing. Physical Exam (per Admitting): General Appearance: no apparent distress Head: normocephalic Eyes: normal inspection ENT: hearing grossly normal Neck: supple, no JVD Respiratory/Chest: lungs clear, normal breath sounds, no respiratory distress Cardiovascular: regular rate, rhythm, no edema, normal peripheral pulses Abdomen/GI: normal bowel sounds, non tender, soft Extremities/Musculoskelatal: normal inspection, no calf tenderness Neurologic/Psych: no motor/sensory deficits, alert, normal mood/affect, oriented x 3 Skin: normal color, warm/dry Hospital Course EPISODIC CONFUSION, R/O TIA/CVA - admit to tele - ? due to complex migraines - symptoms resolved - MRI/MRA brain, MRA neck negative for acute findings - echo showing PFO - per neurology, due to negative MRI, do not need to be concerned as this is the source of symptoms - EEG negative for seizure activity - lipids panel WNL - start ASA ? OCULAR MIGRAINES - outpatient optho follow up ABNORMAL RENAL FUNCTION - creat up to 1.5 today, possibly due to contrast - was given IVF, patient encouraged to increase water intake and void NSAIDs - repeat BMP at follow up Total time spent on discharge = 35 minutes This includes examination of the patient, discharge planning, medication reconciliation, and communication with other providers. Discharge Instructions Discharge Instructions Admission Reason for Admission: Confusion Discharge Discharge Diagnosis / Problem: Episodic Confusion Discharge Goals Goal(s): Decrease discomfort, Improve function Activity Recommendations Activity Limitations: resume your previous activity . Instructions / Follow-Up Instructions / Follow-Up Follow Up with Dr[facility] MondayJune 29 at 11:10am Make an appointment with your neonatal surgeon to have your eyes checked. You were admitted to the hospital for evaluation of an episode of confusion/ altered mental status. Your work up was negative for stroke and seizure. You had an echocardiogram (ultrasound of the heart) that showed a small hole between the top two chambers for your heart. Your PCP can make a referral for you to see cardiology as an outpatient for further follow up. Your kidney function was found to be mildly abnormal - try to increase your water intake and do not take any NSAIDs (ibuprofen) until you are seen for your follow up appointment and your kidney function has been checked. Start taking aspirin 81mg daily Risk Factors for Stroke: You can reduce your chances of stroke by working with your medical provider to adopt a healthy lifestyle. Some specific ways to lower your chance of stroke are: * If you are a smoker, now is the time to stop smoking cigarettes * If you are diabetic, improve the control of your blood sugars * Avoid excessive amounts of alcohol * Control high blood pressure * Lose weight if you are overweight * Be sure to lead an active lifestyle * Eat a healthy diet low in salt, cholesterol and fat You should know about other risk factors for stroke that you are unable to control. These include: * Age 55 years or older * Male gender * Certain racial groups: , or / * Family History of Stroke, Mini stroke or Heart Attack * Sickle Cell Disease Follow Up: It is important for you to keep your follow up appointments with your medical provider. Current Hospital Diet Patient's current hospital diet: AHA Diet (Heart Healthy) Discharge Diet Recommended Diet: AHA Diet (Heart Healthy) Pending Studies Studies pending at discharge: no Laboratory Results Hemoglobin A1c Test 06/23/16 12:30 Range/Units Estimated Average Glucose 105 mg/dl Hemoglobin A1c 5.3 4.5-5.6 % Lipid Panel Test 06/24/16 06:15 Range/Units Triglycerides Level 93 0-150 mg/dl Cholesterol Level 138 0-200 mg/dl HDL Cholesterol 57 mg/dl Cholesterol/HDL Ratio 2.4 LDL Cholesterol, Calculated 62 mg/dl Medical Emergencies . Who to Call and When: Medical Emergencies: Call 911 immediately if you experience any of the following warning signs and symptoms of Stroke: * Sudden numbness or weakness of the face, arm or leg, especially on one side of the body * Sudden confusion, trouble speaking or understanding * Sudden trouble seeing in one or both eyes * Sudden trouble walking, dizziness, loss of balance or coordination * Sudden severe headache with no cause Do not delay calling 911 if you experience any warning signs or symptoms of a stroke. Delay in seeking medical attention may affect what treatments can be given to you. . Non-Emergent Contact Non-Emergency issues call your: Primary Care Provider . . "Provider Documentation" section prepared by Kristina Cade. Stroke Core Measures Reason no t-PA for Stroke: Treatment not indicated Reason no antithrom by day 2: Treatment provided - N/A Reason no antithrom at D/C: Treatment provided - N/A Reason no statin at D/C: Treatment not indicated Reason no anticoag w/a fib: Treatment not indicated VTE Core Measure Inpt VTE Proph given/why not?: SCD's Additional Copies To Nicholas Norris M.D.(JAMEL)
== END 2016-06-24 17:15 | disposition home or self-care (01) ==
LOC: ENRESERVTM → ENRESERVDT → C.EDB 11:45 → C.MED 15:06
PROVIDERS: ADMIT Internal Medicine; ATTEND Internal Medicine
DX: R41.0 Disorientation, unspecified (principal); Q21.1 Atrial septal defect; Z79.82 Long term (current) use of aspirin; Z86.73 Personal history of transient ischemic attack (TIA), and cerebral infarction without residual deficits; R94.4 Abnormal results of kidney function studies